=== PATIENT | male | born 1995 | race Caucasian/White ===

== ENCOUNTER 2020-10-11 16:15 | Inpatient (IN) | payer BC ==
[~2020-10-11] VITALS: Ht 167.6 cm; Wt 51.5 kg
[2020-10-11] MEDS ORDERED: SERT-158 PO (19:54)
[2020-10-11] MEDS ORDERED: HALOPERIDOL 5 MG TABLET PO PRN (22:00)
[2020-10-11] MEDS ORDERED: MELA3TAB89 PO (22:17)
[2020-10-11] MEDS ORDERED: INFLUENZA VIRUS VACCINE QVS 2020-21 (6MO+)/PF 60 MCG/0.5 ML SYRINGE IM ONE (22:30)
[2020-10-12 00:44] VITALS: BP 126/84
[2020-10-12] MEDS: ZOLPIDEM TARTRATE 10 MG TABLET PO PRN ×2 (01:28→21:19)
[2020-10-12] MEDS: LORazepam 2 MG TABLET PO PRN ×2 (01:28→16:23)
[2020-10-12] MEDS ORDERED: MAGNESIUM HYDROXIDE SUSPENSION 30 ML UDCUP PO PRN (07:30)
[2020-10-12] MEDS ORDERED: CloNIDine HCL 0.1 MG TABLET PO PRN (07:30)
[2020-10-12] MEDS ORDERED: NICOTINE 14 MG/24 HOUR PATCH TD PRN (07:30)
[2020-10-12] MEDS ORDERED: MAG HYDROX/AL HYDROX/SIMETH ES 30 ML SUSPENSION UDCUP PO PRN (07:30)
[2020-10-12] MEDS ORDERED: PETROLATUM,WHITE 28 GM JELLY TP PRN (07:30)
[2020-10-12] MEDS ORDERED: DOCUSATE SODIUM 100 MG CAPSULE PO PRN (07:30)
[2020-10-12] MEDS ORDERED: GuaiFENesin/D-METHORPHAN [SUGAR-FREE] 200-20MG/10 ML SYRUP UDCUP PO PRN (07:30)
[2020-10-12] MEDS ORDERED: ONDANSETRON HCL 4 MG TABLET PO PRN (07:30)
[2020-10-12] MEDS ORDERED: ALBUTEROL SULFATE HFA 90 MCG/PUFF 8 GM INHALER IH PRN (07:30)
[2020-10-12] MEDS ORDERED: LOPERAMIDE HCL 2 MG CAPSULE PO PRN (07:30)
[2020-10-12] MEDS: IBUPROFEN 400 MG TABLET PO PRN (11:01)
[2020-10-12 17:19] VITALS: BP 111/68
[2020-10-12] MEDS: TraMADol HCL 50 MG TABLET PO PRN (17:59)
[2020-10-13] MEDS: LORazepam 2 MG TABLET PO PRN ×4 (00:30→20:56)
[2020-10-13 06:39] VITALS: BP 99/63
[2020-10-13 08:47] VITALS: BP 107/62
[2020-10-13] MEDS: OLANZapine 5 MG TABLET PO SCH ×2 (09:00→17:00)
[2020-10-13] MEDS: SERTRALINE HCL 50 MG TABLET PO SCH (09:00)
[2020-10-13 17:07] VITALS: BP 106/63
[2020-10-13] MEDS: IBUPROFEN 400 MG TABLET PO PRN (17:48)
[2020-10-13] MEDS: ZOLPIDEM TARTRATE 10 MG TABLET PO PRN (20:00)
[2020-10-13] MEDS: TraMADol HCL 50 MG TABLET PO PRN (20:18)
[2020-10-14 00:40] VITALS: BP 133/87
[2020-10-14] MEDS: OxyCODONE HCL/ACETAMINOPHEN 5-325 MG TABLET PO PRN ×3 (01:36→22:04)
[2020-10-14] MEDS: LORazepam 2 MG TABLET PO PRN ×3 (01:36→17:14)
[2020-10-14] MEDS: IBUPROFEN 400 MG TABLET PO PRN (05:10)
[2020-10-14 08:21] VITALS: BP 125/76
[2020-10-14] MEDS: SERTRALINE HCL 50 MG TABLET PO SCH (09:00)
[2020-10-14] MEDS: OLANZapine 5 MG TABLET PO SCH ×2 (09:00→17:00)
[2020-10-14] MEDS: ACETAMINOPHEN 325 MG TABLET PO PRN (09:51)
[2020-10-14 16:29] VITALS: BP 115/68
[2020-10-15] MEDS: IBUPROFEN 400 MG TABLET PO PRN (00:56)
[2020-10-15] MEDS: LORazepam 2 MG TABLET PO PRN (00:58)
[2020-10-15] MEDS: ZOLPIDEM TARTRATE 10 MG TABLET PO PRN ×2 (00:58→20:56)
[2020-10-15 01:02] VITALS: BP 110/62
[2020-10-15] MEDS: OLANZapine 5 MG TABLET PO SCH ×3 (09:00→16:47)
[2020-10-15] MEDS: SERTRALINE HCL 50 MG TABLET PO SCH ×3 (09:04→09:32)
[2020-10-15 10:34] VITALS: BP 104/64
[2020-10-15] MEDS: OxyCODONE HCL/ACETAMINOPHEN 5-325 MG TABLET PO PRN ×2 (10:42→19:18)
[2020-10-15 16:26] VITALS: BP 103/66
[2020-10-15] MEDS: TraMADol HCL 50 MG TABLET PO PRN (19:19)
[2020-10-16] MEDS: IBUPROFEN 400 MG TABLET PO PRN (00:54)
[2020-10-16] MEDS: LORazepam 2 MG TABLET PO PRN ×2 (00:54→11:50)
[2020-10-16 00:55] VITALS: BP 119/76
[2020-10-16] MEDS: TraMADol HCL 50 MG TABLET PO PRN ×2 (07:03→17:17)
[2020-10-16] MEDS: OxyCODONE HCL/ACETAMINOPHEN 5-325 MG TABLET PO PRN ×3 (07:04→21:24)
[2020-10-16 08:20] LABS: COVID AG,FIA SOURCE NASOPHARYNGEAL
[2020-10-16] MEDS: SERTRALINE HCL 50 MG TABLET PO SCH (09:00)
[2020-10-16] MEDS: OLANZapine 5 MG TABLET PO SCH ×2 (09:00→17:00)
[2020-10-16] MEDS: MULTIVITAMINS, THERAPEUTIC TABLET PO SCH (09:07)
[2020-10-16 16:57] VITALS: BP 120/70
[2020-10-16 17:38] VITALS: BP 120/70
[2020-10-16 20:36] VITALS: BP 121/84
[2020-10-16 21:24] VITALS: BP 125/83
[2020-10-16] MEDS: ZOLPIDEM TARTRATE 10 MG TABLET PO PRN (22:23)
[2020-10-17 01:43] VITALS: BP 125/71
[2020-10-17] MEDS: TraMADol HCL 50 MG TABLET PO PRN ×3 (03:46→16:37)
[2020-10-17] MEDS: IBUPROFEN 400 MG TABLET PO PRN (06:43)
[2020-10-17] MEDS: SERTRALINE HCL 50 MG TABLET PO SCH ×2 (07:23→13:42)
[2020-10-17] MEDS: MULTIVITAMINS, THERAPEUTIC TABLET PO SCH (07:23)
[2020-10-17] MEDS: OLANZapine 5 MG TABLET PO SCH ×3 (07:23→16:23)
[2020-10-17] MEDS: OxyCODONE HCL/ACETAMINOPHEN 5-325 MG TABLET PO PRN ×2 (07:23→13:42)
[2020-10-17 08:00] VITALS: BP 128/91
[2020-10-17] MEDS ORDERED: BuPROPion HCL 100 MG SR TABLET PO ONE (14:00)
[2020-10-17] MEDS: LevETIRAcetam 500 MG TABLET PO SCH (16:23)
[2020-10-17 16:36] VITALS: BP 129/79
[2020-10-17] MEDS: ZOLPIDEM TARTRATE 10 MG TABLET PO PRN (20:55)
[2020-10-18] VITALS (7 sets, daily range): BP systolic 119–130; BP diastolic 74–88
[2020-10-18] MEDS: OxyCODONE HCL/ACETAMINOPHEN 5-325 MG TABLET PO PRN ×3 (04:10→20:25)
[2020-10-18] MEDS: LevETIRAcetam 500 MG TABLET PO SCH ×2 (08:12→17:12)
[2020-10-18] MEDS: OLANZapine 5 MG TABLET PO SCH ×2 (08:12→17:12)
[2020-10-18] MEDS: BuPROPion HCL 150 MG SR TABLET PO SCH (08:12)
[2020-10-18] MEDS: MULTIVITAMINS, THERAPEUTIC TABLET PO SCH (08:12)
[2020-10-18] MEDS: TraMADol HCL 50 MG TABLET PO PRN ×3 (08:13→23:40)
[2020-10-19] VITALS (7 sets, daily range): BP systolic 128–142; BP diastolic 74–98
[2020-10-19] MEDS: OxyCODONE HCL/ACETAMINOPHEN 5-325 MG TABLET PO PRN ×3 (05:23→18:13)
[2020-10-19] MEDS: TraMADol HCL 50 MG TABLET PO PRN ×3 (06:43→21:46)
[2020-10-19] MEDS: LevETIRAcetam 500 MG TABLET PO SCH ×2 (08:53→16:25)
[2020-10-19] MEDS: OLANZapine 5 MG TABLET PO SCH ×2 (08:53→16:25)
[2020-10-19] MEDS: BuPROPion HCL 150 MG SR TABLET PO SCH (08:53)
[2020-10-19] MEDS: MULTIVITAMINS, THERAPEUTIC TABLET PO SCH (08:53)
[2020-10-19] MEDS: IBUPROFEN 400 MG TABLET PO PRN (18:33)
[2020-10-19] MEDS: ACETAMINOPHEN 325 MG TABLET PO PRN (21:46)
[2020-10-20] VITALS (7 sets, daily range): BP systolic 105–140; BP diastolic 61–89
[2020-10-20] MEDS: TraMADol HCL 50 MG TABLET PO PRN ×4 (04:48→19:30)
[2020-10-20] MEDS: OxyCODONE HCL/ACETAMINOPHEN 5-325 MG TABLET PO PRN ×2 (06:08→13:46)
[2020-10-20] MEDS: LevETIRAcetam 500 MG TABLET PO SCH ×2 (08:51→16:43)
[2020-10-20] MEDS: MULTIVITAMINS, THERAPEUTIC TABLET PO SCH (08:51)
[2020-10-20] MEDS: BuPROPion HCL 150 MG SR TABLET PO SCH (08:51)
[2020-10-20] MEDS: OLANZapine 5 MG TABLET PO SCH ×2 (08:51→16:43)
[2020-10-20] MEDS: IBUPROFEN 400 MG TABLET PO PRN (18:17)
[2020-10-21 00:15] VITALS: BP 129/88
[2020-10-21] MEDS: OxyCODONE HCL/ACETAMINOPHEN 5-325 MG TABLET PO PRN ×3 (00:19→21:55)
[2020-10-21 05:12] VITALS: BP 124/86
[2020-10-21] MEDS: IBUPROFEN 400 MG TABLET PO PRN ×3 (05:16→23:53)
[2020-10-21 08:05] VITALS: BP_SYST 121; BP_SYST 146; BP_DIAS 68; BP_DIAS 93
[2020-10-21] MEDS: OLANZapine 5 MG TABLET PO SCH ×2 (08:08→16:02)
[2020-10-21] MEDS: LevETIRAcetam 500 MG TABLET PO SCH ×2 (08:08→16:02)
[2020-10-21] MEDS: MULTIVITAMINS, THERAPEUTIC TABLET PO SCH (08:08)
[2020-10-21] MEDS: TraMADol HCL 50 MG TABLET PO PRN ×2 (08:09→16:02)
[2020-10-21] MEDS: BuPROPion HCL 150 MG SR TABLET PO SCH (08:10)
[2020-10-21 11:18] VITALS: BP 136/80
[2020-10-21 14:26] LABS: COVID AG,FIA SOURCE NASOPHARYNGEAL
[2020-10-21 16:30] VITALS: BP 130/78
[2020-10-21] MEDS: ACETAMINOPHEN 325 MG TABLET PO PRN (17:44)
[2020-10-21] MEDS: ZOLPIDEM TARTRATE 10 MG TABLET PO PRN (23:53)
[2020-10-21 23:54] VITALS: BP 122/80
[2020-10-22] MEDS: OxyCODONE HCL/ACETAMINOPHEN 5-325 MG TABLET PO PRN ×3 (06:40→20:55)
[2020-10-22] MEDS: BuPROPion HCL 150 MG SR TABLET PO SCH (08:01)
[2020-10-22] MEDS: MULTIVITAMINS, THERAPEUTIC TABLET PO SCH (08:01)
[2020-10-22] MEDS: OLANZapine 5 MG TABLET PO SCH ×2 (08:02→16:20)
[2020-10-22] MEDS: LevETIRAcetam 500 MG TABLET PO SCH ×2 (08:02→16:20)
[2020-10-22] MEDS: TraMADol HCL 50 MG TABLET PO PRN ×2 (08:02→15:34)
[2020-10-22 10:04] VITALS: BP 132/82
[2020-10-22 12:28] VITALS: BP 142/93
[2020-10-22] MEDS: IBUPROFEN 400 MG TABLET PO PRN ×2 (13:19→22:37)
[2020-10-22 18:30] VITALS: BP 111/72
[2020-10-22] MEDS: ACETAMINOPHEN 325 MG TABLET PO PRN (19:16)
[2020-10-22] MEDS: ZOLPIDEM TARTRATE 10 MG TABLET PO PRN (22:40)
[2020-10-23 06:30] VITALS: BP 124/84
[2020-10-23] MEDS: OxyCODONE HCL/ACETAMINOPHEN 5-325 MG TABLET PO PRN ×2 (06:30→13:47)
[2020-10-23] MEDS: IBUPROFEN 400 MG TABLET PO PRN ×2 (06:37→15:45)
[2020-10-23 08:00] VITALS: BP 119/77
[2020-10-23 08:15] VITALS: BP 119/77
[2020-10-23] MEDS: MULTIVITAMINS, THERAPEUTIC TABLET PO SCH (08:15)
[2020-10-23] MEDS: TraMADol HCL 50 MG TABLET PO PRN ×2 (08:15→16:13)
[2020-10-23] MEDS: LevETIRAcetam 500 MG TABLET PO SCH (08:15)
[2020-10-23] MEDS: BuPROPion HCL 150 MG SR TABLET PO SCH (08:15)
[2020-10-23] MEDS: OLANZapine 5 MG TABLET PO SCH ×2 (08:15→16:12)
[2020-10-23 13:45] VITALS: BP 140/80
[2020-10-23] MEDS: ACETAMINOPHEN 325 MG TABLET PO PRN (16:13)
[2020-10-23] MEDS: LevETIRAcetam 250 MG TABLET PO SCH (16:14)
[2020-10-23 16:34] VITALS: BP 114/78
[2020-10-23] MEDS: ZOLPIDEM TARTRATE 10 MG TABLET PO PRN (21:01)
[2020-10-24] VITALS (9 sets, daily range): BP systolic 127–139; BP diastolic 70–90
[2020-10-24] MEDS: OxyCODONE HCL/ACETAMINOPHEN 5-325 MG TABLET PO PRN ×3 (01:48→19:02)
[2020-10-24] MEDS: IBUPROFEN 400 MG TABLET PO PRN ×3 (03:04→22:28)
[2020-10-24] MEDS: TraMADol HCL 50 MG TABLET PO PRN ×3 (05:11→21:22)
[2020-10-24] MEDS: MULTIVITAMINS, THERAPEUTIC TABLET PO SCH (09:27)
[2020-10-24] MEDS: OLANZapine 5 MG TABLET PO SCH ×2 (09:27→16:20)
[2020-10-24] MEDS: LevETIRAcetam 250 MG TABLET PO SCH ×2 (09:27→16:21)
[2020-10-24] MEDS: BuPROPion HCL 150 MG SR TABLET PO SCH (09:29)
[2020-10-24] MEDS: ACETAMINOPHEN 325 MG TABLET PO PRN (16:21)
[2020-10-25 05:23] VITALS: BP 127/63
[2020-10-25] MEDS: OxyCODONE HCL/ACETAMINOPHEN 5-325 MG TABLET PO PRN (05:23)
[2020-10-25 07:12] LABS: BASOPHILS % (AUTO) 1.3 % (0.0-2.0); HEMATOCRIT 39.6 % (41-53); HEMOGLOBIN 13.6 g/dL (13.5-17.5); LYMPHOCYTES # (AUTO) 1.7 K/uL (1.0-4.8); MEAN CORPUSCULAR HEMOGLOBIN 30.5 pg (26.0-34.0); MEAN CORPUSCULAR HGB CONC 34.3 G/dL (31.0-37.0); MEAN CORPUSCULAR VOLUME 89 fL (80-100); MONOCYTES # (AUTO) 0.6 K/uL (0.1-1.0); MONOCYTES % (AUTO) 11.3 % (2.0-9.0); NEUTROPHILS # (AUTO) 2.9 K/uL (1.8-7.7); NEUTROPHILS % (AUTO) 52.4 % (40.0-70.0); PLATELET COUNT (AUTO) 181 K/uL (150-450); RED BLOOD CELL COUNT(AUTO) 4.46 MIL/uL (4.50-5.90)
[2020-10-25 07:28] LABS: ALANINE AMINOTRANSFERASE 84 U/L (12-78); ALBUMIN 4.4 g/dL (3.4-5.0); ALKALINE PHOSPHATASE 98 U/L (46-116); ANION GAP 8 mmol/L (8-16); ASPARTATE AMINOTRANSFERASE 37 U/L (15-37); BILIRUBIN,TOTAL 0.6 mg/dL (0.1-1.0); CALCIUM, TOTAL 9.6 mg/dL (8.8-10.5); CARBON DIOXIDE 29 mmol/L (22-29); CHLORIDE 101 mmol/L (98-107); CREATININE 0.83 mg/dL (0.60-1.30); GLOMERULAR FILTR. RATE CALC > 60 mL/min (>60); GLUCOSE,RANDOM 90 mg/dL (70-110); POTASSIUM 4.5 mmol/L (3.5-5.1); SODIUM SERUM 138 mmol/L (136-145); TOTAL PROTEIN, SERUM 7.7 g/dL (6.4-8.2); UREA NITROGEN, BLOOD 22 mg/dL (7-18)
[2020-10-25] MEDS: MULTIVITAMINS, THERAPEUTIC TABLET PO SCH (08:05)
[2020-10-25] MEDS: OLANZapine 5 MG TABLET PO SCH ×2 (08:05→16:51)
[2020-10-25] MEDS: BuPROPion HCL 150 MG SR TABLET PO SCH (08:05)
[2020-10-25] MEDS: LevETIRAcetam 250 MG TABLET PO SCH ×2 (09:00→16:51)
[2020-10-25 09:06] VITALS: BP 142/88
[2020-10-25] MEDS: ACETAMINOPHEN 325 MG TABLET PO PRN (09:10)
[2020-10-25] MEDS: IBUPROFEN 400 MG TABLET PO PRN ×2 (09:10→20:14)
[2020-10-25 12:29] VITALS: BP 140/80
[2020-10-25] MEDS: TraMADol HCL 50 MG TABLET PO PRN (12:31)
[2020-10-25 17:01] VITALS: BP 119/79
[2020-10-25 20:14] VITALS: BP 134/88
[2020-10-25] MEDS: ZOLPIDEM TARTRATE 10 MG TABLET PO PRN (20:39)
[2020-10-26 08:00] VITALS: BP 131/86
[2020-10-26] MEDS: LevETIRAcetam 250 MG TABLET PO SCH ×2 (09:00→16:06)
[2020-10-26 09:55] VITALS: BP 130/70
[2020-10-26] MEDS: OxyCODONE HCL/ACETAMINOPHEN 5-325 MG TABLET PO PRN (09:56)
[2020-10-26] MEDS: BuPROPion HCL 150 MG SR TABLET PO SCH (09:56)
[2020-10-26] MEDS: OLANZapine 5 MG TABLET PO SCH ×2 (09:56→16:06)
[2020-10-26] MEDS: MULTIVITAMINS, THERAPEUTIC TABLET PO SCH (09:56)
[2020-10-26 12:40] VITALS: BP 136/72
[2020-10-26] MEDS: TraMADol HCL 50 MG TABLET PO PRN (12:42)
[2020-10-26 16:16] VITALS: BP 121/70
[2020-10-26] MEDS: IBUPROFEN 400 MG TABLET PO PRN (16:47)
[2020-10-27] MEDS: OxyCODONE HCL/ACETAMINOPHEN 5-325 MG TABLET PO PRN (05:42)
[2020-10-27] MEDS: MULTIVITAMINS, THERAPEUTIC TABLET PO SCH (08:32)
[2020-10-27] MEDS: BuPROPion HCL 150 MG SR TABLET PO SCH (08:32)
[2020-10-27] MEDS: LevETIRAcetam 250 MG TABLET PO SCH ×2 (08:32→16:12)
[2020-10-27] MEDS: OLANZapine 5 MG TABLET PO SCH ×2 (08:32→16:12)
[2020-10-27] MEDS: IBUPROFEN 400 MG TABLET PO PRN (09:49)
[2020-10-27 09:50] VITALS: BP 136/78
[2020-10-27 16:18] VITALS: BP 101/77
[2020-10-27 20:09] VITALS: BP 110/79
[2020-10-27] MEDS: ZOLPIDEM TARTRATE 10 MG TABLET PO PRN (20:09)
[2020-10-27] MEDS: ACETAMINOPHEN 325 MG TABLET PO PRN (20:09)
[2020-10-27 21:10] VITALS: BP 120/78
[2020-10-28 08:00] VITALS: BP 120/69
[2020-10-28] MEDS: OxyCODONE HCL/ACETAMINOPHEN 5-325 MG TABLET PO PRN (08:30)
[2020-10-28] MEDS: LevETIRAcetam 250 MG TABLET PO SCH ×2 (09:00→16:11)
[2020-10-28] MEDS: MULTIVITAMINS, THERAPEUTIC TABLET PO SCH (10:12)
[2020-10-28] MEDS: OLANZapine 5 MG TABLET PO SCH ×2 (10:12→16:11)
[2020-10-28] MEDS: BuPROPion HCL 150 MG SR TABLET PO SCH (10:13)
[2020-10-28] MEDS: TraMADol HCL 50 MG TABLET PO PRN (10:56)
[2020-10-28 16:32] VITALS: BP 130/80
[2020-10-28] MEDS: LORazepam 2 MG TABLET PO PRN (18:14)
[2020-10-29] MEDS: BuPROPion HCL 150 MG SR TABLET PO SCH (08:15)
[2020-10-29] MEDS: OLANZapine 5 MG TABLET PO SCH ×2 (08:15→16:07)
[2020-10-29] MEDS: MULTIVITAMINS, THERAPEUTIC TABLET PO SCH (08:16)
[2020-10-29] MEDS: LevETIRAcetam 250 MG TABLET PO SCH ×2 (09:00→18:36)
[2020-10-29 09:17] VITALS: BP 115/85
[2020-10-29] MEDS: OxyCODONE HCL/ACETAMINOPHEN 5-325 MG TABLET PO PRN (09:20)
[2020-10-29 15:26] LABS: COVID AG,FIA SOURCE NASOPHARYNGEAL
[2020-10-29 16:00] VITALS: BP 142/95
[2020-10-29] MEDS: ZOLPIDEM TARTRATE 10 MG TABLET PO PRN (21:47)
[2020-10-29] MEDS: ACETAMINOPHEN 325 MG TABLET PO PRN (21:47)
[2020-10-30 04:30] VITALS: BP 130/87
[2020-10-30] MEDS: OxyCODONE HCL/ACETAMINOPHEN 5-325 MG TABLET PO PRN (04:32)
[2020-10-30 08:00] VITALS: BP 131/92
[2020-10-30] MEDS: BuPROPion HCL 150 MG SR TABLET PO SCH (09:30)
[2020-10-30] MEDS: OLANZapine 5 MG TABLET PO SCH ×2 (09:30→16:03)
[2020-10-30] MEDS: LevETIRAcetam 250 MG TABLET PO SCH ×2 (09:30→16:03)
[2020-10-30] MEDS: MULTIVITAMINS, THERAPEUTIC TABLET PO SCH (09:30)
[2020-10-30] MEDS ORDERED: BUPR150SR PO (14:39)
[2020-10-30] MEDS ORDERED: OLAN5TAB2 PO (14:40)
[2020-10-30] MEDS ORDERED: LEVE500S9 PO (14:42)
[2020-10-30] MEDS ORDERED: MULT-711 PO (14:43)
[2020-10-30 16:55] VITALS: BP 116/73
[2020-10-30] MEDS: IBUPROFEN 400 MG TABLET PO PRN (19:27)
[2020-10-31 00:30] VITALS: BP 115/78
[2020-10-31] MEDS: ACETAMINOPHEN 325 MG TABLET PO PRN (00:32)
[2020-10-31 08:00] VITALS: BP 110/77
[2020-10-31] MEDS: OLANZapine 5 MG TABLET PO SCH (08:32)
[2020-10-31] MEDS: BuPROPion HCL 150 MG SR TABLET PO SCH (08:32)
[2020-10-31] MEDS: MULTIVITAMINS, THERAPEUTIC TABLET PO SCH (08:32)
[2020-10-31] MEDS: LevETIRAcetam 250 MG TABLET PO SCH (08:32)
== END 2020-10-31 12:00 | disposition designated cancer center or children's hospital (05) | DRG 885 ==
LOC: B3A 22:12 → 3EC 10-16 20:00 → 3EI 10-29 13:45
PROVIDERS: ADMIT Psychiatry & Neurology Child & Adolescent Psychiatry; ATTEND Psychiatry & Neurology Child & Adolescent Psychiatry
DX: F31.4 Bipolar disorder, current episode depressed, severe, without psychotic features (principal); E44.0 Moderate protein-calorie malnutrition; R45.851 Suicidal ideations; F41.9 Anxiety disorder, unspecified; G47.00 Insomnia, unspecified; Z20.822 Contact with and (suspected) exposure to COVID-19; F17.200 Nicotine dependence, unspecified, uncomplicated; I95.9 Hypotension, unspecified; Z59.0 Homelessness
CPT/HCPCS: 71111; 87081; 87426; 90686; 97110; 97116; 97140; 97161; G0482

== ENCOUNTER 2021-04-13 10:37 | Emergency (ER) | payer BC ==
[~2021-04-13] VITALS: Ht 167.6 cm; Wt 56.8 kg
[~2021-04-13 10:37] MED LIST: BUPR150SR PO; LEVE500S9 PO; MULT-711 PO; OLAN5TAB52 PO
[2021-04-13 12:14] VITALS: BP 129/72
== END 2021-04-13 12:15 | disposition home or self-care (01) ==
LOC: EMS 10:41
DX: F31.9 Bipolar disorder, unspecified (principal); R44.0 Auditory hallucinations; G47.00 Insomnia, unspecified; F41.9 Anxiety disorder, unspecified; F17.200 Nicotine dependence, unspecified, uncomplicated
CPT/HCPCS: 99284; Z7502